=== PATIENT | male | born 1960 | race Caucasian/White ===

== ENCOUNTER 2020-10-05 06:15 | Day surgery (SDC) | payer OTHER, SELFPAY ==
[2020-10-05 06:31] VITALS: BP 142/96; PULSE 84; RESP 16; TEMP 36.5; O2SAT 98
--- NOTE | 2020-10-05 07:23 | W.PM.DSUDISC ---
Discharge Plan Disposition Patient Disposition: HOME Condition: Good Discharge Details Reason For Visit: Release left ring trigger finger Attending Provider: Bong Chew Primary Care Provider: Unknown,Unknown Home Meds and New Rx's Prescriptions: New ibuprofen 600 mg tablet 600 mg PO TID PRN (Reason: pain) Qty: 30 RF: 0 acetaminophen 500 mg capsule 1,000 mg PO Q8H PRN PRNQty: 90 RF: 0 Discharge Instructions Stand Alone Forms: Jeevan Landers Finger Release Referrals: Bong Chew MD [ [facility] STAFF PHYSICIAN] - Activity:: Activity as Tolerated Remove Dressings/Wound Care:: 48 hours Shower/Bathe:: 48 hours Diet:: As Tolerated Discharge Orders Discharge Orders: Discharge Order (Routine); Ordered 10/05/20 Ordered By: Tom Carrero DS: Diagnosis Discharge Diagnosis (1) Trigger ring finger of left hand: Status: Acute
[2020-10-05] MEDS: Sodium Bicarbonate 50 MEQ/50 ML VIAL (07:27)
[2020-10-05 07:45] VITALS: BP 150/103; PULSE 80; RESP 16; TEMP 37; O2SAT 98
--- NOTE | 2020-10-05 14:02 | ROE_ITS ---
Date of service: 10/05/20 Time of Service: 07:42 Operative Note Operative Note DATE OF PROCEDURE: 10/05/20 PRE-OP DIAGNOSIS: Left Ring Finger Trigger Finger POST-OP DIAGNOSIS: same PROCEDURE: Trigger Finger Release - Left Ring Finger SURGEON: Bong Chew ANESTHESIA TYPE: Local By Surgeon Refer to Anesthesia Record ESTIMATED BLOOD LOSS: 0 PATHOLOGY: none sent TOURNIQUET TIME: 0 COMPLICATIONS: None Patient was transported to: same day Patient's condition: stable Indications: I have seen Orestes in clinic for symptoms of a trigger finger. The catching, clicking, locking, and pain limited function. The diagnosis of trigger finger was evident. The symptoms had not responded to conservative measures. I discussed trigger finger release with the patient. I reviewed the risks of the procedure to include, but not limited to, bleeding, infection, pain, stiffness, incomplete release, damage to nerves or vessels, continued catching, recurrence. Despite these risks, the patient elected to proceed. Findings: There was a tightened A1 nathan which was released. The flexor tendons were inspected and the patient was able to move the finger without any catching, clicking, or locking. Procedure Description: Juan was greeted in the preoperative holding area where the correct side was identified and marked. The consent was reviewed with the patient and signed. All questions were answered. He was taken back to the operating room. The patient was placed into the supine position on the operating room table with the left arm on an arm board. All bony prominences were well padded. No prophylactic antibiotics were administered since this was a clean, elective hand surgical case. The left arm was then prepped with Chloraprep and draped in a standard fashion with stockinette and extremity drape. A timeout to confirm correct identity, side and site, procedure, allergies, anesthesia, and medical concerns was performed. The surgical site was marked as a longitudinal incision directly over the A1 pul saima of the involved digit. This was confirmed with palpation during finger flexion. This area, overlying the metacarpal head, was then anesthetized with 1% Lidocaine. The patient tolerated this well and once the anesthetic had setup, the procedure began. A longitudinal incision was made through skin only, approximately 1cm. The deep tissues were dissected bluntly. Once the A1 nathan and flexor tendons were identified the soft tissue including neurovascular structures were retracted medially and laterally. There were no crossing structures over the A1 nathan. The proximal edge of the nathan was identified and the nathan was incised with tenotomy scissors. There was a release of the tendons once this was fully released. The tendons were then removed from the wound and inspected. Excess synovium was resected. The tendons were then returned and the patient was asked to move the finger into deep flexion and back to extension. There was no recreation of the pre-operative symptoms. The hand was then once more inspected for any A0 nathan or area of possible constriction. The wound was then irrigated and the skin was closed with a 4-0 Nylon. This was dressed with gauze and a Conform dressing. The patient tolerated the procedure well and was returned to the Same Day Surgery area in a stable condition suffering no known complication.
== END 2020-10-05 08:08 | disposition home or self-care (01) ==
PROVIDERS: Visit Provider Student in an Organized Health Care Education/Training Program
PROC: (CPT 26055; principal; 2020-10-05 07:30)
DX: M65.342 Trigger finger, left ring finger (principal)
CPT/HCPCS: 26055

== ENCOUNTER 2023-02-17 10:41 | Outpatient (CLI) | payer BC, SELFPAY ==
--- NOTE | 2023-02-17 10:30 | RT.EKG_ITS ---
APPROVED REPORT Exam: Resting ECG Reason for Exam: SOB Patient Location: O HR:82 bpm ECG Measurements Heart Rate 82 AXIS NV 144 P 70 QRSd 95 QRS 63 QT 363 T 89 QTc 424 Conclusion Sinus rhythm...normal P axis, V-rate 50- 99 Probable left atrial enlargement...P >50mS, <-0.10mV V1 Abnrm T, consider ischemia, anterolateral lds...T <-0.20mV, I aVL V2-V6
--- NOTE | 2023-02-17 11:30 | DI.RAD_ITS ---
Exam(s) XR CHEST 2V PA LATERAL EXAM: XR CHEST 2V PA LATERAL CLINICAL HISTORY: SOB TECHNIQUE: 2D digital imaging was performed. COMPARISON: No exams were available for comparison FINDINGS: HEART: Normal size. Aorta: Not dilated. PULMONARY VASCULATURE: Normal. LUNGS: Minimal linear scarring or atelectasis in the right middle lobe, otherwise clear. PLEURAL SPACE: No pleural effusion or pneumothorax. BONE:Unremarkable for age. Soft tissues: Unremarkable. IMPRESSION: No acute abnormality. DATA REPOSITORY: RADIATION DOSE DELIVERED:
--- NOTE | 2023-02-17 11:50 | DI.VRAD_ITS ---
PROCEDURE INFORMATION: Exam: XR Chest Exam date and time: 02/17/2023 11:43 AM Age: 62 years old Clinical indication: Shortness of breath TECHNIQUE: Imaging protocol: Radiologic exam of the chest. Views: 2 views. COMPARISON: No relevant prior studies available. FINDINGS: Lungs: Mild atelectasis in the right middle lobe. No consolidation. Pleural spaces: Unremarkable. No pleural effusion. No pneumothorax. Heart/Mediastinum: Unremarkable. No cardiomegaly. Bones/joints: Unremarkable. IMPRESSION: Mild atelectasis in the right middle lobe Dictated and Authenticated by: Estevan Shaikh MD. Ordering:ENEIDA Tatum MD
[2023-02-17 11:58] LABS: Abs Immature Grans 0.03 10^3/uL (0.0-0.06); Absolute Basophil Count 0.05 10^3/uL (0.0-0.2); Absolute Lymphocyte Count 2.02 10^3/uL (1.2-3.4); Absolute Monocyte Count 0.46 10^3/uL (0.1-0.8); Basophils % 0.6; Eosinophils % 1.1; HCT 49.8 % (40.0-50.0); HGB 16.7 g/dL (13.5-17.5); Immature Grans % 0.3; Lymphocytes % 22.8; MCH 29.8 pg (27.0-33.0); MCHC 33.5 % (32.0-36.0); MCV 89 fL (80-95); MPV 9.2 fL (8.0-11.0); Monocytes % 5.2; Platelet Count 254 10^3/uL (130-400); RBC 5.61 10^6/uL (4.36-5.78); RDW 11.8 % (11.8-14.1); RDW-SD 38.2 fL; WBC 8.86 10^3/uL (4.4-10.8)
[2023-02-17 12:13] LABS: ALT 45 U/L (16-63); AST 17 U/L (15-37); Alkaline Phosphatase 98 U/L (46-116); Anion Gap 9.1 mmol/L (3-11); BUN 26 mg/dL (7-18); Bilirubin, Total 0.5 mg/dL (0.2-1.0); CO2 27.9 mmol/L (21.0-32.0); CREATININE 1.3 mg/dL (0.70-1.30); Calcium 10.1 mg/dL (8.5-10.1); Chloride 101 mmol/L (98-107); Glucose 126 mg/dL (74-106); Potassium 3.9 mmol/L (3.5-5.1); Sodium 138 mmol/L (136-145); Total Protein 8.9 g/dL (6.4-8.2); Troponin I < 50 ng/L (<or=60)
[2023-02-17 12:26] LABS: D-Dimer 220 ng/mlFEU (<500)
== END 2023-02-17 10:42 | disposition home or self-care (01) ==
LOC: DI.CM 10:43
PROVIDERS: Visit Provider Physician Assistant
DX: R06.02 Shortness of breath (principal)
CPT/HCPCS: 36415; 80053; 93010; 71046; 84484; 85025; 85379

== ENCOUNTER → 2023-03-06 00:21 | Outpatient (CLI) | payer BC, SELFPAY ==
--- NOTE | 2023-03-06 07:45 | ETT_ITS ---
APPROVED REPORT Exam: Exercise Treadmill Patient Location: Out-Patient Room/Bed: Stress Nurse: Shelly Berumen RN Ordering Provider:GEORGINA ZAYAS, Contact Number: [phone] BMI: 25.60 Baseline Rhythm: Sinus Rhythm Indications: SOB, Medical History Medical History: HTN Cardiac Medications: Losartan, albuterol sulfate, omeprazole Allergies: NKA Cardiac Risk Factors: HTN Previous Cardiac Procedures: None Pretest Chest Pain Characteristics: None Exercise History: None Physical Disabilities: None Lung Sounds: Clear to auscultation Heart Sounds: Regular Stress Test Details Test: Exercise stress testing was performed using a Car protocol. Rest Stress HR Resting HR Supine: 87 bpm Max Heart Rate (APMHR): 159 bpm Resting HR Standin bpm Target HR (85% APMHR): 135 bpm Max HR Achieved: 141 bpm % of APMHR: 89 Recovery HR: 99 bpm HR response to stress: Normal HR response to stress BP Resting BP Supine: 144/92 mmHg Resting BP Standin/90 mmHg Max BP: 152/72 mmHg Recovery BP: 136/90 mmHg BP response to stress: Normal blood pressure response to stress. ECG Resting ECG: Sinus Rhythm Ectopy: None Stress ECG: Sinus Tachycardia ST Change: No significant ST segment changes noted Arrhythmia: None Recovery ECG: Sinus Rhythm Recovery ST Change: No significant ST segment changes noted Recovery Arrhythmia: None Clinical Reason for Termination: Target HR Achieved, Fatigue Stress Symptoms: General Fatigue Exercise duration: 06 min19 sec Highest Stage Reached: Stage 3: 3.4 mph at 14% grade. Exercise capacity: 7.51 METs Angina Score: None Guaman Treadmill Score: 5.0 Rate Pressure Product: [id number] Stress ECG Conclusion 1. Resting electrocardiogram was within normal limits 2. Patient exercised on the Car protocol and completed a workload of 7.51 METS limited by fatigue 3. Normal heart rate and blood pressure response to exercise. Patient achieved 89% of predicted hear t rate for age 4. There was no electrocardiographic evidence of myocardial ischemia 5. There were no significant dysrhythmias Guaman Treadmill Score is 5.0 which is Low risk. Stress Test Summary STAGE Time (mins) Speed (mph) Grade (%) HR BP SpO2 SYMPTOMS METS Supine 87 144/92 97 Standing 93 138/90 1 3 1.7 10 112 152/72 4.5 2 6 2.5 12 140 7 1 min recovery 128 150/78 98 3 min recovery 107 150/92 6 min recovery 99 136/90
== END ==
PROVIDERS: Visit Provider Physician Assistant
DX: R06.02 Shortness of breath (principal)
CPT/HCPCS: 93017

== ENCOUNTER 2023-08-09 01:24 | Outpatient (CLI) | payer OTHER, SELFPAY ==
--- NOTE | 2023-08-10 15:06 | W.PFT ---
Date of service: 08/10/23 Time of Service: 10:00 Pulmonary Function Test Result Indications: Dyspnea on exertion Interpretation Spirometry: There is no airflow limitation. No bronchodilator response Lung Volumes: Normal lung volumes Diffusion Capacity: Normal diffusion Airway Pressure: Normal airways resistance Impression Normal pulmonary function testing Clinical Correlation therefore is recommended.
== END 2023-08-09 01:25 | disposition home or self-care (01) ==
LOC: RT 01:24
PROVIDERS: PCP Nurse Practitioner Family; Visit Provider Nurse Practitioner Family
DX: R06.00 Dyspnea, unspecified (principal)
CPT/HCPCS: 94060; 94726; 94729

== ENCOUNTER 2023-09-06 08:44 | Outpatient (CLI) | payer OTHER, SELFPAY ==
[2023-09-06 09:20] LABS: ESR 4 mm/hr (0-20)
[2023-09-06 10:05] LABS: C-Reactive Protein < 0.50 mg/dL (<or=0.5)
[2023-09-07 11:09] LABS: Lyme Ab w Rflx to Lyme Confirm Negative (Negative)
[2023-09-10 14:22] LABS: Anaplasma phagocytophilum Negative (Negative); B. miyamotoi PCR Negative (Negative); Babesia divergens/MO-1 Negative (Negative); Babesia duncani Negative (Negative); Babesia microti Negative (Negative); Ehrlichia chaffeensis Negative (Negative); Ehrlichia ewingii/canis Negative (Negative); Ehrlichia muris eauclairensis Negative (Negative)
== END 2023-09-06 08:45 | disposition home or self-care (01) ==
PROVIDERS: PCP Nurse Practitioner Family; Visit Provider Otolaryngology
DX: R51.9 Headache, unspecified (principal)
CPT/HCPCS: 36415; 85652; 87798; 86140; 86618

== ENCOUNTER 2024-02-21 11:07 | Emergency (ER) | payer BC, SELFPAY ==
[2024-02-21] VITALS (13 sets, daily range): BP systolic 161–183; BP diastolic 79–104; PULSE 80–103; RESP 13–27; TEMP 37.1–37.3; O2SAT 93–98
--- NOTE | 2024-02-21 11:30 | DI.RAD_ITS ---
Exam(s) XR PORTABLE CHEST AP EXAM: XR PORTABLE CHEST AP CLINICAL HISTORY: right sided weaknes. TECHNIQUE: 2D digital imaging was performed. COMPARISON: CR,XR XR CHEST 2V PA LATERAL from 02/17/2023 FINDINGS: Single AP portable view. Heart size is upper normal. The mediastinum is not widened. Lungs are clear. No infiltrates nor obvious pleural effusions. IMPRESSION: No acute pulmonary findings on this single AP portable view of the chest. DATA REPOSITORY: RADIATION DOSE DELIVERED:
--- NOTE | 2024-02-21 11:30 | DI.CT_ITS ---
Exam(s) CT BRAIN NECK CTA EXAM: CT BRAIN NECK CTA CLINICAL HISTORY: right sided weakness, speech slurred. TECHNIQUE: Imaging Protocol: Axial CT angiography was performed with multi-slice acquisition and mu lti-planar and/or 3D reconstructions. CONTRAST MATERIAL: Intravenous: Omnipaque 350 Contrast volume:structured data in ml COMPARISON: CT CT SINUS WO from 09/21/2023 FINDINGS: CTA Neck W: Aortic arch anatomy: The aortic arch anatomy is conventional and there is no significant stenosis at the origin of the great vessels off of the aortic arch. No intimal flap evident. Anterior circulation: Both common carotid arteries ascend with normal luminal diameters. 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 Some flow is reconstituted in this vesse l just proximal to the cavernous sinus in the skull. The right carotid bulb and proximal right ICA are patent with no significant stenosis and the right I CA is patent in the upper neck and skull base-carotid canal. Posterior circulation: Both vertebral arteries originate in conventional fashion off of the subclavian arteries and there is no obvious stenosis at the origin of the vertebral arteries. Left vertebral artery is dominant and ascends in the foramen transverse area with luminal diameter of 4.3 mm. The right vertebral artery ascends with luminal diameter of 3.8 mm. At the skull base both vertebral arteries contribute to the formation of the basilar artery. CTA Brain W: Anterior circulation: As described above, the left internal carotid artery is occluded at its origin. Flow in this vessel is reconstituted just proximal to the cavernous sinus. The supraclinoid aspects of the ICAs are patent. Both A1 segments are patent as are the anterior cer ebral arteries and there is no evidence of aneurysm at the level of the anterior communicating artery . The left middle cerebral artery is occluded 1 cm distal to its origin. It appears occluded for a dis tance of 1.5 cm.. Flow is seen more distally in this vessel. The right middle cerebral artery is pa tent. Posterior circulation: The basilar artery ascends in the midline. Distally it gives off patent bilateral superior cerebella r arteries. Above this level the basilar artery terminates as patent bilateral posterior cerebral arteries. There is no evidence of aneurysm at the tip of the basilar artery nor elsewhere in the [id number] is. CT BRAIN: There is no evidence of intracranial hemorrhage, mass effect, or shift of midline structures. There are no extra-axial fluid collections. Ventricles are not enlarged or shifted. There are no ring enh ancing lesions in the brain and no abnormal meningeal enhancement. No obvious ischemic infarct evide nt at this time on CT scan. IMPRESSION: 1. 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 Flow in this vessel is reconstituted just proximal to the left cavernous sinus. There is no significant blessing nosis in the opposite-right internal carotid artery. 2. 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 3. No obvious area of infarct in the brain evident on CT scan at this time. No intracranial hemorrh age. No ring enhancing lesions in the brain nor abnormal meningeal enhancement. 4. Vertebral arteries are patent as is the basilar artery and posterior cerebral arteries. 5. There are no aneurysms in the brain. Report called by myself to ER provider 02/21/2024 at 12:25 p.m. RADIATION DOSE DELIVERED: 1,998.44mGy.cm Total DLP DATA REPOSITORY: All CT scans at this facility are submitted to the National Radiology Data Registry (NRDR) Dose Index Registry (DIR) with the [employer] ([employer]). RADIATION OPTIMIZATION: All CT scans at this facility use at least one of these dose optimization te chniques: automated exposure control; mA and/or kV adjustment per patient size (includes targeted exa ms where dose is matched to clinical indication); or iterative reconstruction.
--- NOTE | 2024-02-21 11:30 | RT.EKG_ITS ---
APPROVED REPORT Exam: Resting ECG Reason for Exam: [facility] Patient Location: E HR:96 bpm ECG Measurements Heart Rate 96 AXIS MO 148 P 45 QRSd 92 QRS 35 QT 372 T 79 QTc 471 Conclusion Sinus rhythm...normal P axis, V-rate 60- 99 Ventricular premature complex...V complex w/ short R-R interval Nonspecific T abnrm, anterolateral leads...T <-0.10mV, I aVL V2-V6
[2024-02-21 11:48] LABS: Abs Immature Grans 0.12 10^3/uL (0.0-0.06); Absolute Basophil Count 0.09 10^3/uL (0.0-0.2); Absolute Eosinophil Count 0.25 10^3/uL (0.0-0.7); Absolute Lymphocyte Count 2.73 10^3/uL (1.2-3.4); Absolute Monocyte Count 0.35 10^3/uL (0.1-0.8); Absolute Neutrophil Count 6.45 10^3/uL (1.2-6.7); Basophils % 0.9 %; Eosinophils % 2.5 %; HCT 47.1 % (40.0-50.0); HGB 15.9 g/dL (13.5-17.5); Immature Grans % 1.2 %; Lymphocytes % 27.3 %; MCH 30.5 pg (27.0-33.0); MCHC 33.8 % (32.0-36.0); MCV 90 fL (80-95); MPV 9.5 fL (8.0-11.0); Monocytes % 3.5 %; Neutrophils % 64.6 %; Platelet Count 219 10^3/uL (130-400); RBC 5.22 10^6/uL (4.36-5.78); RDW 11.7 % (11.8-14.1); RDW-SD 38.8 fL; WBC 9.99 10^3/uL (4.4-10.8)
[2024-02-21] MEDS: Omnipaque 350 MG/ML 100 ML BTL IJ (11:54)
[2024-02-21] MEDS: Normal Saline - Diluent 50 ML VIAL IJ (11:55)
[2024-02-21 12:12] LABS: ALT 53 U/L (16-63); AST 20 U/L (15-37); Albumin 4.2 g/dL (3.4-5.0); Alkaline Phosphatase 97 U/L (46-116); Anion Gap 9.5 mmol/L (3-11); BUN 22 mg/dL (7-18); Bilirubin, Total 0.38 mg/dL (0.2-1.0); CO2 25.5 mmol/L (21.0-32.0); CREATININE 1.3 mg/dL (0.70-1.30); Chloride 104 mmol/L (98-107); Estimated GFR 62.11 (mL/min/1.73m2); Glucose 199 mg/dL (74-106); Magnesium 1.9 mg/dL (1.8-2.4); Potassium 4.1 mmol/L (3.5-5.1); Sodium 139 mmol/L (136-145); Total Protein 7.7 g/dL (6.4-8.2)
[2024-02-21 12:15] LABS: Troponin I < 4 ng/L (<or=76)
[2024-02-21] MEDS: Tenecteplase 50 MG KIT 16 MG IVP (12:50)
--- NOTE | 2024-02-21 12:55 | ED.GENADUL_ITS ---
Discharge Plan Disposition Patient Disposition: Transfer-Acute Inpatient Care Specific Acute Inpt Facility: [facility] Condition: Critical Discharge Details Clinical Impression: Acute right MCA stroke Primary Care Provider: Sheba You ED Provider: Cheryl Monterroso Home Meds and New Rx's Prescriptions: No Action (DME) BreatheRite MDI Spacer Spacer See Rx Instructions .ROUTE .MEDSUPPLY Qty: 1 0RF Rx Instructions: As directed albuterol sulfate [Proventil HFA] 90 mcg/actuation HFA aerosol inhaler 2 puff inhalation Q6H PRN (Reason: shortness of breath or wheezing) Qty: 8.5 0RF ibuprofen 600 mg tablet 600 mg PO TID PRN (Reason: pain) Qty: 30 0RF acetaminophen 500 mg capsule 1,000 mg PO Q8H PRN PRNQty: 90 0RF Discharge Data Discharge Date/Time-TO BE ENTERED AT DEPARTURE: 02/21/24 13:42 HPI <LESLYE Balbuena - Last Filed: 02/22/24 09:52> General Date/Time Provider Initiated Documentation: 02/21/24 11:10 . HPI Narrative: 63-year-old male presenting with acute onset of right-sided deficit at approximately 1031 at the dentist. Had slurred speech with difficulty moving right arm and leg. Approximately 10 minutes after onset of symptoms resolved in the ambulance. At time of evaluation in the emergency department patient was asymptomatic. He denies prior history of similar symptoms in the past. He denies any history of recent head injury or history of anticoagulation use. He denies any associated vision change with episode. He denies any difficulty swallowing with episodes Related Data Home Medications ?Medication ?Instructions ?Recorded ?Confirmed acetaminophen 500 mg capsule 1,000 mg (2 x 500 mg) PO Q8H PRN 10/05/20 02/21/24 PRN #90 caps ibuprofen 600 mg tablet 600 mg PO TID PRN pain #30 tabs 10/05/20 02/21/24 albuterol sulfate 90 mcg/actuation 2 puff inhalation Q6H PRN 03/29/23 02/21/24 aerosol inhaler (Proventil HFA) shortness of breath or wheezing #8.5 grams inhalational spacing device #1 ea 07/31/23 02/21/24 (BreatheRite MDI Spacer) Previous Rx's ?Medication ?Instructions ?Recorded acetaminophen 500 mg capsule 1,000 mg (2 x 500 mg) PO Q8H PRN 10/05/20 PRN #90 caps ibuprofen 600 mg tablet 600 mg PO TID PRN pain #30 tabs 10/05/20 albuterol sulfate 90 mcg/actuation 2 puff inhalation Q6H PRN 03/29/23 aerosol inhaler (Proventil HFA) shortness of breath or wheezing #8.5 grams inhalational spacing device #1 ea 07/31/23 (BreatheRite MDI Spacer) Allergies Allergy/AdvReac Type Severity Reaction Status Date / Time No Known Allergies Allergy Verified 02/21/24 11:19 General Stated Complaint: CVA/TIA LÁZARO: 3 Exam <LESLYE Balbuena - Last Filed: 02/22/24 09:52> Narrative Exam Narrative: Alert and oriented x 4, slurred speech, hemiparesis right side, aphasia, pupils equal round reactive to light and accommodation, extraocular muscles intact, maintaining secretions, oropharynx patent, uvula midline, sensation preserved with maybe mild diminishment to right side, cardiac rate rhythm regular, lungs clear to auscultation Course <LESLYE Balbuena - Last Filed: 02/22/24 09:52> Vital Signs Vital signs: Vital Signs Respiratory Rate 21 02/21/24 11:10 Temperature 37.1 C 02/21/24 11:12 Pulse 97 H 02/21/24 12:16 Pulse 103 H 02/21/24 12:16 Respiratory Rate 25 H 02/21/24 12:16 Respiratory Effort Normal 02/21/24 12:09 Respiratory Depth Normal 02/21/24 11:29 Respiratory Pattern Normal 02/21/24 11:29 Blood Pressure 165/93 H 02/21/24 12:16 Blood Pressure Mean 116 02/21/24 12:16 Blood Pressure Position Sitting 02/21/24 11:12 Pulse Oximetry 96 02/21/24 12:16 Oxygen Delivery Method Room Air 02/21/24 12:09 Oxygen Flow Rate 0 02/21/24 12:09 Lab/Test Results Lab/Test Results: Laboratory Tests Range/Units 02/21/24 11:25 WBC (4.4-10.8) 10^3/uL 9.99 RBC (4.36-5.78) 10^6/uL 5.22 Hgb (13.5-17.5) g/dL 15.9 Hct (40.0-50.0) % 47.1 MCV (80-95) fL 90 MCH (27.0-33.0) pg 30.5 MCHC (32.0-36.0) % 33.8 RDW (11.8-14.1) % 11.7 L Plt Count (130-400) 10^3/uL 219 MPV (8.0-11.0) fL 9.5 Immature Gran % % 1.2 Neutrophils % % 64.6 Lymphocytes % % 27.3 Monocytes % % 3.5 Eosinophils % % 2.5 Basophils % % 0.9 Nucleated RBC % (0.0-0.3) % 0.0 Absolute Neutrophils (1.2-6.7) 10^3/uL 6.45 Absolute Lymphocytes (1.2-3.4) 10^3/uL 2.73 Absolute Monocytes (0.1-0.8) 10^3/uL 0.35 Absolute Eosinophils (0.0-0.7) 10^3/uL 0.25 Absolute Basophils (0.0-0.2) 10^3/uL 0.09 Sodium (136-145) mmol/L 139 Potassium (3.5-5.1) mmol/L 4.1 Chloride (98-107) mmol/L 104 Carbon Dioxide (21.0-32.0) mmol/L 25.5 Anion Gap (3-11) mmol/L 9.5 BUN (7-18) mg/dL 22 H Creatinine (0.70-1.30) mg/dL 1.3 Est GFR (CKD-EPI 2020) (mL/min/1.73m2) 62.11 Glucose (74-106) mg/dL 199 H Calcium (8.5-10.1) mg/dL 9.0 Magnesium (1.8-2.4) mg/dL 1.9 Total Bilirubin (0.2-1.0) mg/dL 0.38 AST (15-37) U/L 20 ALT (16-63) U/L 53 Alkaline Phosphatase (46-116) U/L 97 Troponin I (<or=76) ng/L < 4 Total Protein (6.4-8.2) g/dL 7.7 Albumin (3.4-5.0) g/dL 4.2 Medical Decision Making <LESLYE Balbuena - Last Filed: 02/22/24 09:52> 63-year-old male presenting with initially the presentation of a TIA with resolution of symptoms, approximately an hour after arrival in the emergency department at 1210 patient had return of symptoms, total right-sided deficit of the NIH stroke scale of 11. We immediately called teleneuro and patient was evaluated approximately 5 minutes after teleneuro was consulted. Teleneuro exam at 1225. TNK was drawn up and discussion was had with patient regarding risk benefit including that of anaphylaxis, bleeding, and further deterioration. Patient is agreeable to risk associated with TNK administration and I reviewed risk benefits with patient. Patient consented to these risks associated with fibrinolysis and he is a candidate based on time of presentation and lack of recent anticoagulation. Blood pressure has remained stable at 168/90. Patient's maintaining his airway at this time, right sided deficit slurred speech remain. I spoke with teleneuro physician. Dr. DALLAS was discussed with Dr. Yeung, radiologist with a left internal carotid occlusion with reconstitution and right MCA occlusion which is likely acute. No visible hemorrhage or stroke visualized on CT scan at this time. Transfer line was called after discussion with teleneuro physician and I spoke with neuro interventionalists, Dr. Post's has accepted patient to the emergency room department at [facility]. Patient is agreeable to transfer at this time, he has had neurochecks every 10 minutes and his symptoms have remained unchanged. Airway is maintained, blood pressure is stable. Slurred speech/aphasia is persistent however patient's airway remains patent and uvula midline at time of discharge with EMS to tertiary care facility. Quality:SDOH Health Related Social Needs: No Data to Display <Servando Carmona MD - Last Filed: 02/22/24 15:16> Date: 02/21/24 Time: 14:00 Note: Patient seen, examined, and discussed with LESLYE Monterroso. I agree with treatment plan as discussed/documented. Critical Care Time <LESLYE Balbuena - Last Filed: 02/22/24 09:52> Critical Care Time Attestation: Approximately 45 minutes of critical care time secondary to acute stroke with MCA occlusion requiring diagnostic image interpretation of CTA head, telemetry monitoring, neurointensivist consultation and review, teleneuro neurologist review, diagnostic lab interpretation and review, neurochecks every 15 minutes for stability, continue telemetry monitoring, and fibrinolytic administration, TNK for acute CVA in the setting of an MCA occlusion with transfer to tertiary care hospital [facility] <LESLYE Balbuena - Last Filed: 02/22/24 09:52> All Active Problems (Updated 02/22/24 @ 09:52 by LESLYE Balbuena) Acute right MCA stroke (Acute) Chronic facial pain (Acute) Chronic frontal sinusitis (Acute) Tinnitus (Acute) Serous otitis media (Acute) Ringing in left ear (Acute) Hypertension (Chronic) Skin lesion (Acute) Eczema (Acute) Hyperlipidemia (Acute) Vitamin D deficiency (Acute) Weight loss (Acute) BPH with obstruction/lower urinary tract symptoms (Acute) Anxiety (Chronic) Trigger ring finger of left hand (Acute) Injected: 06/21/2020 S/P Release: 10/05/2020 Trigger index finger of left hand (Acute) Trigger middle finger of left hand (Acute) Medical History (Updated 02/22/24 @ 09:52 by LESLYE Balbuena) Depression Shoulder pain Hip pain, right Surgical History Hx of appendectomy Family History (Updated 04/12/23 @ 13:48 by Allyssa Phipps) Father , by suicide in this 40's Depression Mother No problems noted. Brother , by suicide in his 30's Depression Sister , from COPD exacerbation Depression Bipolar 1 disorder Sister , of lung cancer Cancer lung Social History (Updated 05/01/23 @ 15:01 by Kathryn Augustine) Smoking/Tobacco Use Status: Former Tobacco Use Quit Date: 04/02/02 Tobacco: How many years used: 20 Second Hand Exposure: Yes Smoking risk assessment performed?: Yes Alcohol Intake: current Alcohol Intake frequency: holidays/special occasions only Alcohol type: beer Drug use: Socially Substance use type: former substance user Date of last use: 01/02/2020 and marijuana Adopted: No Caregiver/Support person: No Foster care: No Household members: spouse, family and children Housing: house Number of Children: 3 Communication Needs: None Education Level: high school Do you need help understanding health information?: Rarely Pets and animals: Yes Pets and animals: cat(s) and dog(s) Sexually active: Yes Do you think of yourself as: straight/heterosexual Current gender identity: male What is your relationship status?: How often do you talk on the phone with friends or family?: three or more times per week How often do you get together with friends or relatives?: once per week Do you belong to any clubs or organized social groups?: no Panel score (0-1 are the most socially isolated patients): 2 What type of physical activity do you participate in: none Seatbelt use: always Helmet use: Yes Helmet use: always Drive intox or ride w/intox route relief driver: No Working smoke detector in home: Yes Carbon monox detector in home: Yes Firearms in home: No Do you feel safe at home: Yes Do you feel safe in your relationship?: Yes Victim of physical abuse: No Victim of emotional abuse: No Victim of sexual abuse: No PAWSS <LESLYE Balbuena - Last Filed: 02/22/24 09:52> Have you Been Recently Intoxicated or Drunk Within the Last 30 days?: No Have you Ever Experienced Previous Episodes of Alcohol Withdrawal?: No Have you ever Experienced Withdrawal Seizures?: No Have you ever Experienced Delirium Tremens(DT)s?: No Have you ever undergone Alcohol Rehabilitation Treatment (i.e, inpt ot outpatient treatment programs)?: No Have you ever Experienced Blackouts?: No Have you ever Combined Alcohol with other Downers within the last 90 days?: No Have you ever Combined Alcohol with any other Substance of Abuse during the last 90 days?: No Positive Blood Alcohol level on Presentation? [PCS.BAL]: No Evidence of Increased Autonomic Activity (i.e. HR>120, tremor, sweating, agitation, nausea)?: No Result: 0 <Servando Carmona MD - Last Filed: 02/22/24 15:16> Result: 0
[2024-02-21 13:10] LABS: Troponin I < 4 ng/L (<or=76)
[2024-02-21 13:19] LABS: Prothrombin Time 10.4 sec (9.1-11.1)
--- OUTSIDE RECORDS SUMMARY | 2024-02-21 13:32 | XMS_ITS | Encounter Summary ---
Author Organization [facility] Address [address] [place] [address] Care Team Providers Care Wrapper Stitcher Name Role Phone Unavailable Primary Care Provider Unavailabl e Encounter Details Date Type Department Care Team (Late st Contact Info) Description 09/06/2023 Lab Requisition [facility] Pathology & Laboratory Medicine - [facility] [address] [place] [address] Outr Resulting Lab, Provider Social History Tobacco Use Types Packs/Day Years Used Date Smoking Tobacco: Never Assessed Sex and Gender Information Value Date Recorded Sex Assigned at Not on file Legal Sex Male 12:46 EDT Gender Identity Not on file Sexual Orientation Not on file documented as of this encounter Plan of Treatment Not on file documented as of this encounter Procedures Procedure Name Priority Date/Time Associated Diagnosis Comments LYME AB Routine 09/06/2023 8:50 EDT documented in this encounter Results * LYME AB (09/06/2023 8:50 EDT) Lyme Ab Negative Negative 09/07/2023 11:05 EDT [facility] Blood VENOUS BLOOD / Unknown 09/06/2023 8:50 EDT 09/06/2023 16:50 EDT us Provider Outr Resulting Lab IMMUNOLOGY AND SEROL OGY ORDERABLES Final Result [facility] [address] [place], [place] [id number] documented in this encounter Visit Diagnoses Not on filedocumented in this encounter
--- OUTSIDE RECORDS SUMMARY | 2024-02-21 13:32 | XMS_ITS | Referral Summary ---
Author Organization [facility] Address [address] [place] [address] Care Team Providers Care Real Time Operator Name Role Phone Unavailable Primary Care Provider Unavailabl e Social History Tobacco Use Types Packs/Day Years Used Date Smoking Tobacco: Never Assessed Sex and Gender Information Value Date Recorded Sex Assigned at Not on file Legal Sex Male 12:46 EDT Gender Identity Not on file Sexual Orientation Not on file Plan of Treatment Not on file
--- OUTSIDE RECORDS SUMMARY | 2024-02-21 13:32 | XMS_ITS | Clinical Summary ---
Author Organization [facility] Address [address] [place] [address] Care Team Providers Care Purchaser Name Role Phone Unavailable Primary Care Provider Unavailabl e Social History Tobacco Use Types Packs/Day Years Used Date Smoking Tobacco: Never Assessed Sex and Gender Information Value Date Recorded Sex Assigned at Not on file Legal Sex Male 12:46 EDT Gender Identity Not on file Sexual Orientation Not on file Plan of Treatment Health Maintenance Due Date Last Done Comments Hepatitis C Screen 1960 COVID-19 Vaccine (2023-25 season) 2023 RSV Immunization ( o r 60+ Years) (1 - 1-dose 75+ series) 2036
== END 2024-02-21 13:42 | disposition short-term general hospital (02) ==
PROVIDERS: Emergency Provider Physician Assistant; PCP Nurse Practitioner Family
DX: I63.512 Cerebral infarction due to unspecified occlusion or stenosis of left middle cerebral artery (principal); R47.01 Aphasia; G81.91 Hemiplegia, unspecified affecting right dominant side; I10 Essential (primary) hypertension
CPT/HCPCS: 36415; 70496; 70498; 80053; 82962; 93005; 96374; 99291; 71045; 83735; 84484; 85025; 85610; 93010; J3101; J3490

== ENCOUNTER 2024-05-05 02:20 | Outpatient (CLI) | payer OTHER, SELFPAY ==
--- OUTSIDE RECORDS SUMMARY | 2024-05-05 02:22 | XMS_ITS | Encounter Summary ---
Author Organization [facility] Address [address] [place] [address] Care Team Providers Care Acupuncturist Name Role Phone Unavailable Primary Care Provider Unavailabl e Encounter Details Date Type Department Care Team (Late st Contact Info) Description 09/06/2023 Lab Requisition [facility] Pathology & Laboratory Medicine - [facility] [address] [place] [address] Outr Resulting Lab, Provider Social History Tobacco [...] Lyme Ab Negative Negative 09/07/2023 11:05 EDT [facility] Blood VENOUS BLOOD / Unknown 09/06/2023 8:50 EDT 09/06/2023 16:50 EDT us Provider Outr Resulting Lab IMMUNOLOGY AND SEROL OGY ORDERABLES Final Result [facility] [address] [place], [place] [id number] documented in this encounter Visit Diagnoses Not on filedocumented in this encounter
--- OUTSIDE RECORDS SUMMARY | 2024-05-05 02:22 | XMS_ITS | Referral Summary ---
Author Organization [facility] Address [address] [place] [address] Care Team Providers Care Fixer Supervisor Name Role Phone Unavailable Primary Care Provider Unavailabl e Social History Tobacco Use Types Packs/Day Years Used Date Smoking Tobacco: Never Assessed Sex and Gender Information Value Date Recorded Sex Assigned at Not on file Legal Sex Male 12:46 EDT Gender Identity Not on file Sexual Orientation Not on file Plan of Treatment Not on file
--- OUTSIDE RECORDS SUMMARY | 2024-05-05 02:22 | XMS_ITS | Clinical Summary ---
Author Organization [facility] Address [address] [place] [address] Care Team Providers Care Automotive Lube Technician Name Role Phone Unavailable Primary Care Provider [...]
[2024-05-05 12:23] LABS: HCT 47.2 % (40.0-50.0); HGB 15.8 g/dL (13.5-17.5); MCH 30.4 pg (27.0-33.0); MCHC 33.5 % (32.0-36.0); MCV 91 fL (80-95); MPV 9.8 fL (8.0-11.0); Platelet Count 251 10^3/uL (130-400); RDW 11.8 % (11.8-14.1); RDW-SD 38.8 fL; WBC 9.35 10^3/uL (4.4-10.8)
[2024-05-05 12:53] LABS: ALT 38 U/L (16-63); AST 21 U/L (15-37); Albumin 4.3 g/dL (3.4-5.0); Alkaline Phosphatase 122 U/L (46-116); Anion Gap 8.2 mmol/L (3-11); BUN 27 mg/dL (7-18); Bilirubin, Total 0.44 mg/dL (0.2-1.0); CO2 29.8 mmol/L (21.0-32.0); CREATININE 1.2 mg/dL (0.70-1.30); Calcium 9.5 mg/dL (8.5-10.1); Calculated LDL 46 mg/dL (<100); Chloride 105 mmol/L (98-107); Cholesterol 113 mg/dL (<200); Estimated GFR 67.95 (mL/min/1.73m2); Glucose 108 mg/dL (74-106); HDL Cholesterol 48 mg/dL (40-60); Potassium 3.9 mmol/L (3.5-5.1); Sodium 143 mmol/L (136-145); Total Protein 7.8 g/dL (6.4-8.2); Triglyceride 97 mg/dL (<150)
[2024-05-05 13:14] LABS: Hemoglobin A1C 5.4 % (<5.7)
[2024-05-05 19:03] LABS: PSA, Screening 1.7 ng/mL (<=4.5)
== END 2024-05-05 02:21 | disposition home or self-care (01) ==
LOC: LOS 02:20
PROVIDERS: PCP Nurse Practitioner Family; Visit Provider Nurse Practitioner Family
DX: Z00.00 Encounter for general adult medical examination without abnormal findings (principal); I10 Essential (primary) hypertension; E78.5 Hyperlipidemia, unspecified; E55.9 Vitamin D deficiency, unspecified; N40.1 Benign prostatic hyperplasia with lower urinary tract symptoms; N13.8 Other obstructive and reflux uropathy; I63.511 Cerebral infarction due to unspecified occlusion or stenosis of right middle cerebral artery; F41.9 Anxiety disorder, unspecified
CPT/HCPCS: 36415; 80053; 80061; 84153; 85027; 83036; 84443

== ENCOUNTER 2024-10-28 10:02 | Outpatient (CLI) | payer OTHER, SELFPAY ==
[2024-10-28 12:45] LABS: ALT 57 U/L (16-63); AST 19 U/L (15-37); Albumin 4.5 g/dL (3.4-5.0); Alkaline Phosphatase 128 U/L (46-116); Anion Gap 10.3 mmol/L (3-11); BUN 19 mg/dL (7-18); Bilirubin, Total 0.5 mg/dL (0.2-1.0); CO2 27.7 mmol/L (21.0-32.0); Calcium 9.6 mg/dL (8.5-10.1); Calculated LDL 50 mg/dL (<100); Chloride 104 mmol/L (98-107); Cholesterol 124 mg/dL (<200); Estimated GFR 95.97 (mL/min/1.73m2); Glucose 106 mg/dL (74-106); HDL Cholesterol 59 mg/dL (>or=40); Potassium 3.8 mmol/L (3.5-5.1); Sodium 142 mmol/L (136-145); Total Protein 8.1 g/dL (6.4-8.2); Triglyceride 79 mg/dL (<150)
[2024-10-28 12:57] LABS: Hemoglobin A1C 5.2 % (<5.7)
== END 2024-10-28 10:03 | disposition home or self-care (01) ==
PROVIDERS: PCP Nurse Practitioner Family; Visit Provider Nurse Practitioner Family
DX: Z00.00 Encounter for general adult medical examination without abnormal findings (principal); I10 Essential (primary) hypertension; E78.5 Hyperlipidemia, unspecified; I63.512 Cerebral infarction due to unspecified occlusion or stenosis of left middle cerebral artery
CPT/HCPCS: 36415; 80053; 80061; 83036

== ENCOUNTER 2024-12-09 08:19 | Outpatient (CLI) | payer OTHER, SELFPAY ==
[2024-12-09] MEDS: Methacholine 100 MG VIAL IH (12:20)
[2024-12-09] MEDS: Inhaler, Assist Device 1 EACH MC (12:20)
[2024-12-09] MEDS: Albuterol HFA 18 GM 200 PUFF INH IH (12:21)
--- NOTE | 2024-12-15 06:13 | W.PFT ---
Date of service: 12/09/24 Time of Service: 09:58 Pulmonary Function Test Result Indications: Dyspnea Impression 1. Good patient effort was noted. ATS standards for reproducibility were met. 2. Normal spirometry. 3. Following the administration of a bronchodilator there was not a significant response 4. Normal lung volumes. No evidence of restrictive lung disease 5. The DLCO was normal at 111% 4. At 15 mg/mL of methacholine, there was a 15% fall in FEV1 Conclusion: - normal pulmonary funciton testing - negative methacholine challenge testing
== END 2024-12-09 08:20 | disposition home or self-care (01) ==
LOC: RT 08:19
PROVIDERS: PCP Nurse Practitioner Family; Visit Provider Nurse Practitioner Family
DX: R06.02 Shortness of breath (principal)
CPT/HCPCS: 94070; 94726; 94729; 95070; J7674